=== PATIENT | female | born 1935 | race Hispanic/Latino ===

== ENCOUNTER 2017-06-20 15:09 | Emergency (ER) | payer MEDICARE ==
[2017-06-20 15:23] VITALS: RESP 18; TEMP 97.6; O2SAT 98
--- NOTE | 2017-06-20 16:46 | ED PDOC ---
Arrival/HPI - General Chief Complaint: Female Genitourinary Time Seen by Provider: 06/20/17 15:49 Historian: Patient, Family (sister) - History of Present Illness Narrative History of Present Illness (Text): 06/20/17 15:30 pt p/w + ashford malfunction occurring yesterday; pt states the ashford cath, that was just changed 3-2, just fell out of her; pt states she has the ashford cath for ~ 2 months or so; pt needed it due to her worsening urinary incontinence; pt otherwise has no other complaints; pt states no fever/chills/sweats, no cp/ sob/palpitations, no abd pain, no n/v, no numbness/tingling, no bowel changes, no fall/trauma/sick contact; pt just moved up from [facility] to here to stay with her sister; pt is here for further eval; pt's without other complaints PCP: regina at [facility] Time/Duration: 24 hours Symptom Onset: Sudden Symptom Course: Unchanged Activities at Onset: Rest Context: Home Past Medical History - Provider Review Nursing Documentation Reviewed: Yes - Travel History Have you recently traveled outside [place] w/in the past 3 mons?: No - Past History Past History: No Previous - Tetanus Immunization Tetanus Immunization: Unknown - Reproductive Menopause: Yes - Cardiac Hx Congestive Heart Failure: Yes Hx Hypertension: Yes - Endocrine/Metabolic Hx Diabetes Mellitus Type 2: Yes Hx Hypothyroidism: Yes - Psychiatric Hx Psychophysiologic Disorder: No Hx Substance Use: No Family/Social History - Physician Review Nursing Documentation Reviewed: Yes Family/Social History: No Known Family HX Smoking Status: Never Smoked Hx Alcohol Use: No Hx Substance Use: No Hx Substance Use Treatment: No Allergies/Home Meds Allergies/Adverse Reactions: Allergies No Known Allergies Allergy (Verified 06/20/17 15:19) Home Medications: Home Meds Medication Instructions Recorded Confirmed Apixaban [Eliquis] 2.5 mg PO BID 06/20/17 06/20/17 Ascorbic Acid [Vitamin C] 500 mg PO BID 06/20/17 06/20/17 Aspirin [Aspirin Chewable] 81 mg PO DAILY 06/20/17 06/20/17 Atorvastatin [Lipitor] 40 mg PO DAILY 06/20/17 06/20/17 Bisacodyl [Dulcolax] 10 mg TX DAILY PRN 06/20/17 06/20/17 Carvedilol [Coreg] 6.25 mg PO BID 06/20/17 06/20/17 Ferrous Sulfate [Feosol] 325 mg PO BID 06/20/17 06/20/17 Furosemide [Lasix] 20 mg PO MWF 06/20/17 06/20/17 Gabapentin [Neurontin] 100 mg PO TID 06/20/17 06/20/17 Insulin Glargine,Hum.rec.anlog 8 units SC HS 06/20/17 06/20/17 [Lantus Solostar] Multivitamin [Honey Bears] 1 tab PO DAILY 06/20/17 06/20/17 amLODIPine [Norvasc] 5 mg PO DAILY 06/20/17 06/20/17 Review of Systems - Review of Systems Constitutional: Normal Eyes: Normal ENT: Normal Respiratory: Normal Cardiovascular: Normal Gastrointestinal: Normal Genitourinary Female: Other (urinary incontience) Musculoskeletal: Normal Skin: Normal Neurological: Normal Endocrine: Normal Hemo/Lymphatic: Normal Psychiatric: Normal Physical Exam Vital Signs Reviewed: Yes Vital Signs Temp Pulse Resp BP Pulse Ox 06/20/17 17:10 72 18 145/79 98 06/20/17 15:22 97.6 F 65 18 123/50 L 98 Temperature: Afebrile Blood Pressure: Normal Pulse: Regular Respiratory Rate: Normal Appearance: Positive for: Well-Appearing, Other (mildly uncomfortable, NAD, alert/awake, GCS = 15, oriented x 3, cooperative; resting in bed) Pain Distress: None Mental Status: Positive for: Alert and Oriented X 3 - Systems Exam Head: Present: Atraumatic, Normocephalic Pupils: Present: PERRL, Other (no nystagmus, no photophobia) Extroacular Muscles: Present: EOMI Conjunctiva: Present: Normal Ears: Present: Normal Mouth: Present: Moist Mucous Membranes, Other (fair dentitions, no drooling/ stridor, no dysphonia) Pharnyx: Present: Normal Nose (External): Present: Atraumatic Nose (Internal): Present: Normal Inspection Neck: Present: Normal Range of Motion, Trachea Midline. No: MIDLINE TENDERNESS Respiratory/Chest: Present: Clear to Auscultation, Good Air Exchange, Other ( CTA b/l, no w/r/r) Cardiovascular: Present: Regular Rate and Rhythm, Normal S1, S2. No: Murmurs Abdomen: Present: Normal Bowel Sounds, Other (obese/well nourished female, no focal tenderness, no anaya's sign, no mcburney's point tenderness, no masses/ rebound/guarding/rigidity) Genitourinary/Pelvic Exam: Present: Other (ashford cath is currently out) Back: Present: Normal Inspection. No: CVA Tenderness Upper Extremity: Present: Normal Inspection, Normal ROM, NORMAL PULSES, Neurovascularly Intact Lower Extremity: Present: Normal Inspection, NORMAL PULSES, Neurovascularly Intact Neurological: Present: GCS=15, CN II-XII Intact, Speech Normal Skin: Present: Warm, Normal Color, Other (cap refill < 1sec, no ulcerations, no pallor) Psychiatric: Present: Alert, Oriented x 3 Medical Decision Making ED Course and Treatment: 06/20/17 1530 Impression: ashford cath malfunction i have consider all the differential diagnosis regarding pt's chief medical complaints/clinical findings, including but are not limited to: ashford cath malfunction A/P: ashford cath malfunction - observe - supportive care - change ashford cath 06/20/17 18:03 pt received 20fr ashford cath replacement without difficulties by the nursing staff, but noted urinary leakage; pt is made aware; pt will f/u with her urologists as soon as she makes an appointment with them pt/pt's sister are made aware of pt's medical results pt is encouraged continued fluid hydration pt will f/u as directed pt will be discharged home Re-evaluation Time: 18:00 Reassessment Condition: Improving,but remains with symptoms Disposition/Present on Arrival - Present on Arrival Any Indicators Present on Arrival: No History of DVT/PE: No History of Uncontrolled Diabetes: No Urinary Catheter: No History of Decub. Ulcer: Yes History Surgical Site Infection Following: None - Disposition Have Diagnosis and Disposition been Completed?: Yes Diagnosis: Dislodged Ashford catheter Disposition: HOME/ ROUTINE Disposition Time: 17:59 Patient Plan: Discharge Condition: STABLE Discharge Instructions (ExitCare): How to Care for Your Ashford Catheter, Female , Ashford Catheter, Female Print Language: ITALIAN Additional Instructions: Make sure to see your doctor in 1-2 days DRINK PLENTY OF FLUIDS take your medications as prescribed RETURN TO ED IF worse pain, cant breath, persistent vomiting, high fever >101- 102 for hours, altered behavior, unable to urinate, heavy/persistent bleeding, passing out, chest pain, or other medical emergencies Referrals: [facility], [Non-Staff] - Follow up with primary Irvin Valdez MD [Staff Provider] - Follow up with primary Forms: [employer] (Czech)
[2017-06-20 18:17] VITALS: BP 145/79; PULSE 72
== END 2017-06-20 18:20 | disposition home or self-care (01) ==
LOC: ED 15:09
DX: T83.021A Displacement of indwelling urethral catheter, initial encounter (principal); E11.9 Type 2 diabetes mellitus without complications; E03.9 Hypothyroidism, unspecified; I10 Essential (primary) hypertension; I50.9 Heart failure, unspecified